=== PATIENT | male | born 1965 | race Caucasian/White ===

== ENCOUNTER 2017-08-01 10:39 | Emergency (ER) | payer OTHER ==
[~2017-08-01] VITALS: Ht 188 cm; Wt 215.5 kg
[~2017-08-01 10:39] MED LIST: ALLO100 PO; ALLO300 PO; AMLO10 PO; AMLO5 PO; AMOCLA875 PO; ASPI81CH PO; ASPI81EC; ASPI81EC PO; ATEN100; CEPH500 PO; CLOT1TC TOP; CRANBERRY; CRUTCH4 USE; CYCL10 PO; Diflucan100 MG PO; EXEN10PI SQ; FARXIGA5 MG PO; FEXO180 PO; FEXO60 PO; FLUC150A PO; FURO20 PO; GABA100 PO; GABA300; GABA300 PO; GEMF600 PO; GLIM2 PO; HYDACE5 PO; HYDCHL25 PO; IBUHYD PO; IBUP800 PO; Keflex500 MG PO; LIRA0.6P; LISHYD2012 PO; LISI20 PO; LOSA50 PO; LOSARTAN-HCTZ1 EAC2 PO; LOSHYD100 PO; MELO7.5; MELO7.5 PO; METF500; METF500 PO; METF500C; METO100ER PO; METO25ER PO; METO50ER PO; Metformin HCl1000 MG PO; Mobic7.5 MG PO; NAPR550 PO; Nitroglycerin0.4 MG SL; OMEP20ER PO; OXYACE5T PO; OXYC1TAB11 PO; POTCHL10ER PO; POTCIT5 PO; Potassium Citra5 MEQ PO; Prilosec20 MG PO; RXCLIN PO; Roxicodone5 MG PO; SENN187 PO; SITA100T2 PO; SULTRIDS PO; TRAM50; TRAM50 PO; [UNRECOGNIZED DRUG - REMARK]
[2017-08-01 11:23] LABS: BASOPHILS ABSOLUTE AUTO 0.04 K/mm3 (0.00-0.23); BASOPHILS PERCENT AUTO 1 % (0-2); EOSINOPHILS ABSOLUTE AUTO 0.08 K/mm3 (0.00-0.68); EOSINOPHILS PERCENT AUTO 1 % (0-6); Hematocrit 41.3 % (37.0-53.0); Hemoglobin 14.1 g/dL (13.5-17.5); IMMATURE GRAN ABSOLUTE AUTO 0.07 K/mm3 (0.00-0.10); IMMATURE GRAN PERCENT AUTO 1 % (0-1); LYMPHOCYTES ABSOLUTE AUTO 1.95 K/mm3 (0.84-5.20); LYMPHOCYTES PERCENT AUTO 29 % (21-46); MONOCYTES ABSOLUTE AUTO 0.61 K/mm3 (0.16-1.47); MONOCYTES PERCENT AUTO 9 % (4-13); Mean Corpuscular HGB 28.4 pg (26.0-34.0); Mean Corpuscular HGB Conc 34.1 g/dL (31.5-36.5); Mean Corpuscular Volume 83 fL (80-100); Mean Platelet Volume 9.2 fL (9.1-12.4); NEUTROPHILS ABSOLUTE AUTO 4.02 K/mm3 (1.96-9.15); NEUTROPHILS PERCENT AUTO 59 % (41-73); Platelet Count 236 K/mm3 (150-400); RDW Coefficient Variation 13.2 % (11.7-14.2); RDW Standard Deviation 39.8 fL (35.1-46.3); Red Blood Cell Count 4.97 M/mm3 (4.30-5.90); White Blood Cell Count 6.77 K/mm3 (4.00-11.30)
[2017-08-01 11:44] LABS: Alanine Aminotransfer (ALT/SGP 73 U/L (12-78); Albumin, Blood 3.5 g/dL (3.4-5.0); Albumin/Globulin Ratio 0.9 (0.8-1.8); Alk Phos 92 U/L (50-136); Anion Gap 10 mmol/L (6-16); Aspartate Aminotrans (AST/SGOT 52 U/L (12-37); Bilirubin, Total 0.3 mg/dL (0.1-1.0); Blood Urea Nitrogen 22 mg/dL (8-24); Bun/Creatinine Ratio 20.8 (12.0-20.0); CO2, Blood 26 mmol/L (21-32); Calcium, Blood 9.4 mg/dL (8.5-10.1); Chloride, Blood 100 mmol/L (98-108); Creatinine, Blood 1.06 mg/dL (0.60-1.20); Glomerular Filtration Rate >60 (60-); Glucose, Blood 402 mg/dL (70-99); Sodium, Blood 136 mmol/L (136-145); Total Protein, Blood 7.5 g/dL (6.4-8.2); Troponin I <0.015 ng/mL (0.000-0.040)
== END 2017-08-01 14:54 | disposition home or self-care (01) ==
LOC: ER 10:39
PROVIDERS: Emergency Medicine
DX: R07.89 Other chest pain (principal); I10 Essential (primary) hypertension; Z91.19 Patient's noncompliance with other medical treatment and regimen; Z88.8 Allergy status to other drugs, medicaments and biological substances; Z79.899 Other long term (current) drug therapy; Z79.82 Long term (current) use of aspirin; Z79.84 Long term (current) use of oral hypoglycemic drugs; E11.9 Type 2 diabetes mellitus without complications; E66.01 Morbid (severe) obesity due to excess calories; Z68.44 Body mass index [BMI] 60.0-69.9, adult
CPT/HCPCS: 36415; 71045; 80053; 83880; 84484; 85025; 93005; 93010; 99284

== ENCOUNTER 2017-10-12 12:41 | Day surgery (SDC) | payer OTHER ==
[~2017-10-12] VITALS: Ht 2.5 cm; Wt 212.7 kg
[~2017-10-12 12:41] MED LIST changes: +BYDUREON B2 MG/0.85 SC; +FLUC100 PO; +HIPREX1 GM PO; +LINZESS145 MCG PO; +METANX CAPSULE1 EACH PO; +METF500C PO; +MUPI1NAS; +Neurontin800 MG PO; +Novolog100 UNIT/1 SC; +Omeprazole20 M1 PO; +TOUJEO MAX300 UNIT/1 SC; +TRIA15CR3 TOP; +UROCIT-K5 MEQ PO; +ZESTORETIC 20-251 EA PO
== END 2017-10-12 23:02 | disposition home or self-care (01) ==
LOC: ORSCMMR 12:41
PROVIDERS: Internal Medicine Gastroenterology
PROC: 0DB58ZX Excision of Esophagus, Via Natural or Artificial Opening Endoscopic, Diagnostic (ICD-10-PCS; principal; 2017-10-12 13:15)
PROC: 0D758ZZ Dilation of Esophagus, Via Natural or Artificial Opening Endoscopic (ICD-10-PCS; principal; 2017-10-12 13:15)
PROC: 0DB68ZX Excision of Stomach, Via Natural or Artificial Opening Endoscopic, Diagnostic (ICD-10-PCS; principal; 2017-10-12 13:15)
DX: R13.10 Dysphagia, unspecified (principal); R11.2 Nausea with vomiting, unspecified; K31.7 Polyp of stomach and duodenum; R10.13 Epigastric pain; K20.9 Esophagitis, unspecified; K25.9 Gastric ulcer, unspecified as acute or chronic, without hemorrhage or perforation; I10 Essential (primary) hypertension; E11.9 Type 2 diabetes mellitus without complications; G47.33 Obstructive sleep apnea (adult) (pediatric); E66.01 Morbid (severe) obesity due to excess calories; Z68.44 Body mass index [BMI] 60.0-69.9, adult; Z79.82 Long term (current) use of aspirin; Z79.899 Other long term (current) drug therapy
CPT/HCPCS: 82947; 88305; 88342; C1726; J3010; J7120

== ENCOUNTER 2018-04-12 11:55 | Day surgery (SDC) | payer OTHER ==
[~2018-04-12] VITALS: Ht 1 cm; Wt 209.6 kg
[~2018-04-12 11:55] MED LIST changes: +LIRA0.6P SC; +METHENAMINE PO
--- NOTE | 2018-04-12 12:46 | NUR ---
History, Chart, Medications and Allergies reviewed before start of procedure. Patient confirms NPO status and agrees with scheduled surgery. Patient States Post-Procedure ride home has been arranged with his sister, Christine.
--- NOTE | 2018-04-12 13:15 | NUR ---
04/12/18 1315 Dave Nichols Bite Block Placed3-LEAD EKG REVIEWED WITH PHYSICIAN PRIOR TO START OF PROCEDURE.Patient to ENDO 1History, Chart, Medications and Allergies reviewed before start of procedure.MONITOR INTACT WITH CONTINUOUS PULSE OXIMETRY AND INTERMITTENT BP.O2 VIA N/C INTACT THROUGHOUT SEDATION/PROCEDURE.See Anesthesia record
--- NOTE | 2018-04-12 14:18 | NUR ---
Discharge instructions reviewed with patient. Patient verbalizes understanding. Copy given to patient to take home. Discharged via wheelchair to private car for ride home WITH SISTER. DENIES QUESTIONS OR CONCERNS RELATED TO DIFFICULTY
== END 2018-04-12 23:14 | disposition home or self-care (01) ==
LOC: ORSCMMR 11:55 → ORD 13:30 → ORSCMMR 13:30
PROVIDERS: Internal Medicine Gastroenterology
PROC: 0DB68ZX Excision of Stomach, Via Natural or Artificial Opening Endoscopic, Diagnostic (ICD-10-PCS; principal; 2018-04-12 13:30)
DX: R10.13 Epigastric pain (principal); K31.7 Polyp of stomach and duodenum; R11.0 Nausea; I10 Essential (primary) hypertension; E11.9 Type 2 diabetes mellitus without complications; G47.33 Obstructive sleep apnea (adult) (pediatric); E66.01 Morbid (severe) obesity due to excess calories; Z68.44 Body mass index [BMI] 60.0-69.9, adult; Z79.899 Other long term (current) drug therapy
CPT/HCPCS: 82947; 88305; 88342; J2250; J7120

== ENCOUNTER 2020-09-17 06:59 | Day surgery (SDC) | payer OTHER ==
[~2020-09-17] VITALS: Ht 188 cm; Wt 214.0 kg
[~2020-09-17 06:59] MED LIST changes: +INSULIN LI100 UNIT/6 SC; +OZEMPIC0.25 MG/0. SC; +POTCIT10 PO; +ROSU5 PO; -TOUJEO MAX300 UNIT/1 SC; +TOUJEO MAX300 UNIT/2 SC; -UROCIT-K5 MEQ PO
[2020-09-17] MEDS ORDERED: VICTOZA 2-0.6 MG/0.1 SC (07:43)
--- NOTE | 2020-09-17 08:37 | NUR ---
PT TO SDS VIA WC. Patient states colon prep results clear. History, Chart, Medications and Allergies reviewed before start of procedure. Lungs clear T/O to Auscultation. Patient States Post-Procedure ride home has been arranged. [facility] BG 150.
--- NOTE | 2020-09-17 10:28 | NUR ---
Discharge instructions reviewed with patient. Patient verbalizes understanding. Copy given to patient to take home. Patient States Post-Procedure ride home has been arranged. Discharged via wheelchair to private car for ride home. PT ALERT AND ORIENTED AND STATES HES REAdy TO DC HOME RIDE CALLED
== END 2020-09-18 00:31 | disposition home or self-care (01) ==
LOC: ORSCMMR 06:59 → ORD 08:45 → ORSCMMR 09-18 00:31
PROVIDERS: Internal Medicine Gastroenterology
PROC: 0DB78ZX Excision of Stomach, Pylorus, Via Natural or Artificial Opening Endoscopic, Diagnostic (ICD-10-PCS; principal; 2020-09-17 08:45)
PROC: 0DBM8ZX Excision of Descending Colon, Via Natural or Artificial Opening Endoscopic, Diagnostic (ICD-10-PCS; principal; 2020-09-17 08:45)
PROC: 0DBK8ZX Excision of Ascending Colon, Via Natural or Artificial Opening Endoscopic, Diagnostic (ICD-10-PCS; principal; 2020-09-17 08:45)
DX: R19.5 Other fecal abnormalities (principal); K31.7 Polyp of stomach and duodenum; D12.2 Benign neoplasm of ascending colon; D12.4 Benign neoplasm of descending colon; K44.9 Diaphragmatic hernia without obstruction or gangrene; K57.30 Diverticulosis of large intestine without perforation or abscess without bleeding; K64.1 Second degree hemorrhoids; I10 Essential (primary) hypertension; E11.9 Type 2 diabetes mellitus without complications; G47.33 Obstructive sleep apnea (adult) (pediatric); E66.01 Morbid (severe) obesity due to excess calories; Z68.44 Body mass index [BMI] 60.0-69.9, adult; Z79.84 Long term (current) use of oral hypoglycemic drugs; Z79.899 Other long term (current) drug therapy
CPT/HCPCS: 82947; 88305; 88341; 88342; J2704; J3010; J7120

== ENCOUNTER 2020-10-05 19:23 | Emergency (ER) | payer OTHER ==
[~2020-10-05] VITALS: Ht 188 cm; Wt 215.5 kg
[~2020-10-05 19:23] MED LIST changes: +VICTOZA 2-0.6 MG/0.1 SC
[2020-10-05] MEDS ORDERED: HYDR1TAB94 PO (22:12)
== END 2020-10-05 22:23 | disposition home or self-care (01) ==
LOC: ER 19:23
DX: S83.92XA Sprain of unspecified site of left knee, initial encounter (principal); S43.401A Unspecified sprain of right shoulder joint, initial encounter; E11.9 Type 2 diabetes mellitus without complications; I10 Essential (primary) hypertension; Z79.82 Long term (current) use of aspirin; Z79.899 Other long term (current) drug therapy; W18.2XXA Fall in (into) shower or empty bathtub, initial encounter
CPT/HCPCS: 73030; 73562-LT; 73610; 73700; 99284-25; A9270

== ENCOUNTER → 2020-12-17 | Outpatient (CLI) | payer OTHER ==
[~2020-12-17] MED LIST changes: +HYDR1TAB94 PO
== END | disposition home or self-care (01) ==
LOC: LAB 17:31 → LAB SHORT 17:31
DX: Z20.822 Contact with and (suspected) exposure to COVID-19 (principal)
CPT/HCPCS: U0003

== ENCOUNTER 2021-05-29 05:09 | Emergency (ER) | payer OTHER ==
[~2021-05-29] VITALS: Ht 188 cm; Wt 215.5 kg
[~2021-05-29 05:09] MED LIST changes: +CEFD300 PO
[2021-05-29 06:40] LABS: BASOPHILS ABSOLUTE AUTO 0.03 K/mm3 (0.00-0.23); BASOPHILS PERCENT AUTO 1 % (0-2); EOSINOPHILS ABSOLUTE AUTO 0.08 K/mm3 (0.00-0.68); EOSINOPHILS PERCENT AUTO 1 % (0-6); Hematocrit 38.6 % (37.0-53.0); Hemoglobin 12.8 g/dL (13.5-17.5); IMMATURE GRAN ABSOLUTE AUTO 0.02 K/mm3 (0.00-0.10); IMMATURE GRAN PERCENT AUTO 0 % (0-1); LYMPHOCYTES ABSOLUTE AUTO 1.63 K/mm3 (0.84-5.20); LYMPHOCYTES PERCENT AUTO 27 % (21-46); MONOCYTES ABSOLUTE AUTO 0.66 K/mm3 (0.16-1.47); MONOCYTES PERCENT AUTO 11 % (4-13); Mean Corpuscular HGB 28.6 pg (26.0-34.0); Mean Corpuscular HGB Conc 33.2 g/dL (31.5-36.5); Mean Corpuscular Volume 86 fL (80-100); Mean Platelet Volume 8.9 fL (9.1-12.4); NEUTROPHILS ABSOLUTE AUTO 3.71 K/mm3 (1.96-9.15); NEUTROPHILS PERCENT AUTO 61 % (41-73); Platelet Count 158 K/mm3 (150-400); RDW Coefficient Variation 13.7 % (11.7-14.2); RDW Standard Deviation 43.3 fL (35.1-46.3); Red Blood Cell Count 4.47 M/mm3 (4.30-5.90); White Blood Cell Count 6.13 K/mm3 (4.00-11.30)
[2021-05-29 06:59] LABS: Alanine Aminotransfer (ALT/SGP 74 U/L (12-78); Albumin, Blood 3.2 g/dL (3.4-5.0); Albumin/Globulin Ratio 0.8 (0.8-1.8); Alk Phos 77 U/L (50-136); Anion Gap 8 mmol/L (6-16); Aspartate Aminotrans (AST/SGOT 22 U/L (12-37); Bilirubin, Total 0.4 mg/dL (0.1-1.0); Blood Urea Nitrogen 28 mg/dL (8-24); Bun/Creatinine Ratio 27.2 (12.0-20.0); CO2, Blood 26 mmol/L (21-32); Calcium, Blood 9.4 mg/dL (8.5-10.1); Chloride, Blood 102 mmol/L (98-108); Creatinine, Blood 1.03 mg/dL (0.60-1.20); Globulin, Blood 3.8 g/dL (2.2-4.0); Glomerular Filtration Rate >60 (60-); Glucose, Blood 336 mg/dL (70-99); Magnesium, Blood 1.7 mg/dL (1.6-2.4); Potassium, Blood 4.7 mmol/L (3.5-5.5); Sodium, Blood 136 mmol/L (136-145)
[2021-05-29] MEDS ORDERED: LASIX20 M2 PO (09:45)
== END 2021-05-29 10:08 | disposition home or self-care (01) ==
LOC: ER 05:09
PROVIDERS: Student in an Organized Health Care Education/Training Program
DX: U07.1 COVID-19 (principal); R60.9 Edema, unspecified; E11.9 Type 2 diabetes mellitus without complications; I10 Essential (primary) hypertension; Z79.82 Long term (current) use of aspirin; Z79.2 Long term (current) use of antibiotics; Z79.4 Long term (current) use of insulin; Z79.84 Long term (current) use of oral hypoglycemic drugs; Z79.899 Other long term (current) drug therapy
CPT/HCPCS: 71045; 71260; 80053; 83735; 83880; 84484; 85025; 85379; 93005; 93010; 93970; 96374-59; 99284-25; A9270; J1885; Q9967

== ENCOUNTER 2021-06-10 16:24 | Inpatient (IN) | payer OTHER ==
[~2021-06-10] VITALS: Ht 188 cm; Wt 210.0 kg
[~2021-06-10 16:24] MED LIST changes: +LASIX20 M2 PO; -Omeprazole20 M1 PO
[2021-06-10 17:03] LABS: BASOPHILS ABSOLUTE AUTO 0.02 K/mm3 (0.00-0.23); BASOPHILS PERCENT AUTO 0 % (0-2); EOSINOPHILS ABSOLUTE AUTO 0.13 K/mm3 (0.00-0.68); EOSINOPHILS PERCENT AUTO 2 % (0-6); Hematocrit 39.8 % (37.0-53.0); Hemoglobin 13.6 g/dL (13.5-17.5); IMMATURE GRAN ABSOLUTE AUTO 0.02 K/mm3 (0.00-0.10); IMMATURE GRAN PERCENT AUTO 0 % (0-1); LYMPHOCYTES ABSOLUTE AUTO 1.98 K/mm3 (0.84-5.20); LYMPHOCYTES PERCENT AUTO 36 % (21-46); MONOCYTES ABSOLUTE AUTO 0.58 K/mm3 (0.16-1.47); MONOCYTES PERCENT AUTO 10 % (4-13); Mean Corpuscular HGB Conc 34.2 g/dL (31.5-36.5); Mean Corpuscular Volume 85 fL (80-100); Mean Platelet Volume 8.7 fL (9.1-12.4); NEUTROPHILS ABSOLUTE AUTO 2.84 K/mm3 (1.96-9.15); NEUTROPHILS PERCENT AUTO 51 % (41-73); Platelet Count 265 K/mm3 (150-400); RDW Coefficient Variation 15.3 % (11.7-14.2); RDW Standard Deviation 46.7 fL (35.1-46.3); Red Blood Cell Count 4.69 M/mm3 (4.30-5.90); White Blood Cell Count 5.57 K/mm3 (4.00-11.30)
[2021-06-10 17:34] LABS: Albumin, Blood 3.6 g/dL (3.4-5.0); Albumin/Globulin Ratio 0.8 (0.8-1.8); Bilirubin, Total 0.6 mg/dL (0.1-1.0); Bun/Creatinine Ratio 18.1 (12.0-20.0); Calcium, Blood 9.8 mg/dL (8.5-10.1); Creatinine, Blood 1.27 mg/dL (0.60-1.20); Globulin, Blood 4.3 g/dL (2.2-4.0); Potassium, Blood 5.1 mmol/L (3.5-5.5); Total Protein, Blood 7.9 g/dL (6.4-8.2)
[2021-06-10 20:40] LABS: Source, Urine Clean Catch
[2021-06-10 20:42] LABS: Appearance, Urine Hazy (Clear); Blood, Urine Neg (Neg); Color, Urine Amber (P-Yellow); Glucose Qualitative, Urine Neg (Neg); Ketones, Urine Neg (Neg); Leukocyte Esterase, Urine Neg (Neg); Nitrite, Urine Pos (Neg); Protein, Urine 1+ (Neg); Specific Gravity, Urine 1.015 (1.003-1.022); Urobilinogen, Urine 1+ (Normal)
[2021-06-10 20:51] LABS: Bilirubin, Urine 2+ (Neg)
[2021-06-10 20:52] LABS: Bacteria Few /hpf; Red Blood Cells, Urine 0-2 /hpf (0-2); Squamous Epithelial Cells Few /hpf (Few); White Blood Cells, Urine 0-2 /hpf (0-5); Yeast/Fungi Urine Few /hpf
[2021-06-11 05:21] LABS: BASOPHILS ABSOLUTE AUTO 0.03 K/mm3 (0.00-0.23); BASOPHILS PERCENT AUTO 1 % (0-2); EOSINOPHILS ABSOLUTE AUTO 0.16 K/mm3 (0.00-0.68); EOSINOPHILS PERCENT AUTO 3 % (0-6); Hematocrit 35.4 % (37.0-53.0); Hemoglobin 11.9 g/dL (13.5-17.5); IMMATURE GRAN ABSOLUTE AUTO 0.03 K/mm3 (0.00-0.10); IMMATURE GRAN PERCENT AUTO 1 % (0-1); LYMPHOCYTES ABSOLUTE AUTO 2.06 K/mm3 (0.84-5.20); LYMPHOCYTES PERCENT AUTO 37 % (21-46); MONOCYTES ABSOLUTE AUTO 0.62 K/mm3 (0.16-1.47); MONOCYTES PERCENT AUTO 11 % (4-13); Mean Corpuscular HGB 28.8 pg (26.0-34.0); Mean Corpuscular HGB Conc 33.6 g/dL (31.5-36.5); Mean Corpuscular Volume 86 fL (80-100); Mean Platelet Volume 8.7 fL (9.1-12.4); NEUTROPHILS ABSOLUTE AUTO 2.68 K/mm3 (1.96-9.15); NEUTROPHILS PERCENT AUTO 48 % (41-73); Platelet Count 237 K/mm3 (150-400); RDW Coefficient Variation 15.2 % (11.7-14.2); RDW Standard Deviation 47.2 fL (35.1-46.3); Red Blood Cell Count 4.13 M/mm3 (4.30-5.90); White Blood Cell Count 5.58 K/mm3 (4.00-11.30)
[2021-06-11 05:41] LABS: Albumin, Blood 3.2 g/dL (3.4-5.0); Albumin/Globulin Ratio 0.9 (0.8-1.8); Bilirubin, Total 0.5 mg/dL (0.1-1.0); Bun/Creatinine Ratio 18.4 (12.0-20.0); Calcium, Blood 9.4 mg/dL (8.5-10.1); Creatinine, Blood 1.58 mg/dL (0.60-1.20); Globulin, Blood 3.4 g/dL (2.2-4.0); Potassium, Blood 4.3 mmol/L (3.5-5.5); Total Protein, Blood 6.6 g/dL (6.4-8.2)
--- NOTE | 2021-06-11 06:18 | NUR ---
PM SHIFT SUMMARY PATIENT COMES TO US WITH FAILED OUTPATIENT BLE CELLULITIS TREATMENT. HE COMPLETED 5 DAYS OF KEFLEX, THEN WAS STARTED ON IT AGAIN ALONG WITH BACTRIM ON 06/07/21. HE ALSO RECEIVED 3 SHOTS OF CEFTRIAXONE. HIS PCP SENT HIM IN FOR WORSENING OF THE CELLULITIS. HE HAD COVID 6-8 WEEKS AGO AND NOW REQUIRES 4L O2 VIA NC EVERY DAY AT HOME, WHICH HE IS ON HERE NOW. UA SHOWS A UTI WELL. HE IS A&Ox4, WALKS WITH A CANE AND IS A STANDBY ASSIST. HE IS GETTING IV VANCO AND ZOSYN WITH US.
--- NOTE | 2021-06-11 19:27 | NUR ---
PATIENT ON NASAL CANNULA UPON ARRIVAL STABLE ALERT AND ORIENTED X 4. CELLULLITIS IN LEG APPEARS TO BE SPREADING BUT PATINT IS ON ABX. MD SAW PATIENT EARLIER TODAY AND ACKNOWLEDGED THE SPREAD. PATIENT HAS BILATERAL LLE EDEMA WHERE THE INFECTION IS. PRN OXYCODONE ORDERED AND GIVEN FOR PAIN. PATIENT STABLE UPON SHIFT REPORT.
[2021-06-12 05:34] LABS: Bun/Creatinine Ratio 16.9 (12.0-20.0); Calcium, Blood 9.3 mg/dL (8.5-10.1); Creatinine, Blood 1.6 mg/dL (0.60-1.20); Potassium, Blood 4.2 mmol/L (3.5-5.5)
--- NOTE | 2021-06-12 06:31 | NUR ---
SHIFT SUMMARY: PATIENT REPORTS PAIN IN LOW BACK AND BILAT LE, OXYCODONE 10 MG IS EFFECTIVE FOR PAIN CONTROL. DIFFICULT TO OBTAIN BP DUE TO LARGE CUFF DOES NOT FIT CIRCOMFRENCE OF UPPER ARM AND WRIST CUFF GIVES VARIED READING. PATIENT IS ASYMPTOMATIC WITH THROUGHOUT SHIFT. PATIENT VEBALIZES LOOSING SON TO COVID RECENTLY AND IS EMOTIONAL AT TIMES. EMOTIONAL SUPPORT IS GIVEN.
--- NOTE | 2021-06-12 17:27 | NUR ---
PATIENT WHO IS HERE DUE TO CELLULITIS, IS CURRENTLY VISITING WITH FAMILY. TODAY, HE HAS NEEDED SLIDING SCALE INSULILN WITH EACH MEAL. HE HAS PAIN THAT INCREASES WITH MOVEMENT, BUT SUBSIDES WITH STILLNESS AND ROXICODONE. HE HAS TAKEN PRN PITA X 2 THIS SHIFT. THE CELLULITIS APPEARS TO BE CREEPING ABOVE THE OUTLINED PARAMETER MARKED ON THE PATIENTS LEG. THE LOWER EXTREMITIES ARE WARM TO TOUCH, HARD AND HAVE THE APPEARANCE OF ABOUT TO WEEP. LISTENING TO HIS LUNGS, THEY SOUND CLEAR. THE BREATH IS DIMINISHED BUT NO CRACKLES WERE HEARD. BOWEL SOUNDS ARE POSITIVE BUT PATIENT REPORTS NO BM X [address] ROSE STATED WE COULD ORDER MIRALAX. PATIENT TALKED ABOUT HIS SON TODAY, WHO PASSED FROM COVID AND WAS TEARY DURING CONVERSATION. AT THIS TIME, THE PATIENTS MOOD APPEARS RELAXED AND HAPPY WITH HIS YOUNGEST SON VISITNG.
--- NOTE | 2021-06-12 18:15 | NUR ---
PATIENT REPORTS THAT HIS URINE STREAM IS WEAK, HE HAS BACK PAIN AND DARK COLORED URINE. HE STATES THAT HE HAS BEEN DRINKING ALOT OF FLUID THROUGHOUT THE DAY, BUT HAS ONLY URINATED TWICE (AND DOESN'T FEEL LIKE HE NEEDS TO VOID). HE WAS ASKING IF ANOTHER URINE SAMPLE COULD BE TAKEN. DR. ROSE WAS CALLED BUT DOESN'T BELIEVE THAT A UTI IS PLAUSIBLE WITH THE PATIENT ON SUCH STONG ANTIBIOTICS AT THIS TIME. DR. ROSE SUGGESTED FLOMAX 0.4MG DAILY. THE PATIENT DOES NOT WANT TO START ANOTHER NEW MEDICATION AT THIS TIME, SO THE ORDER WAS NOT PLACED INTO THE SYSTEM. I ASKED THE PAITIENT TO ADDRESS THIS ISSUE DIRECTLY WITH THE PROVIDER TOMORROW.
--- NOTE | 2021-06-13 05:23 | NUR ---
SHIFT SUMMARY: PATIENT IS COMPLIANT WITH CARE AND MEDICATION ADMINISTRATION. ONGOING PAIN TREATED PER EMAR. BLE EDEMA PRESENT. REAMINS ON 2L 02 AND CPAP HS SAT > 91%. LCTA, DIMINISHEDD E/U RESP. ROUNDED ABDOMEN WITH UMBILICAL HERNIA. HAS NOT HAD BM, DENIES FEELING CONSTIPATED. EDUCATED PATIENT ON RISL OF CONSTIPATION WITH OPIATE USE. PATIENT RECEIVED MIRALAX ON DAY SHIFT. REDNESS TO BLE EXTREMITY CROSSED OVER OUTLINE MARKED ON ADMISSION, SOME BLISTERING PRESENT BOTTOM OF CALF. NO SIGNIFICANT EVENTS ON NOC.
[2021-06-13 06:05] LABS: Bun/Creatinine Ratio 19.4 (12.0-20.0); Calcium, Blood 9.1 mg/dL (8.5-10.1); Creatinine, Blood 1.7 mg/dL (0.60-1.20)
--- NOTE | 2021-06-13 11:07 | NUR ---
PATIENT HAS SLIGHT PROGRESSION OF CELLULITIS IN BLE. PATIENT WAS MARKED WITH MARKER TO HELP SHOW WORSENING OR IMPROVEMENT IN LEGS. PATIENT WAS A AND O 4X AND HAD NO FURTHER COMPLAINTS.
--- NOTE | 2021-06-14 03:27 | NUR ---
SHIFT SUMMARY PATIENT ALERT AND ORIENTED X 4 ABLE TO VOICE NEEDS C/O PAIN TO HIS LLB NO SWELLING NOTED OXYCODEN 10MG ADM WITH RELIEF PT CONT ABT/IV FOR CELLULITIES MADHURI LOWER EXT NON WEEPING REDNESS STILL EVIDENT WARM TO TOUCH,CPAP ON AT NIGHT NO SOB NOTED/VOICED NO ACUTE CHANGE AT THIS MOMENT
[2021-06-14 05:55] LABS: Bun/Creatinine Ratio 21.7 (12.0-20.0); Calcium, Blood 9.1 mg/dL (8.5-10.1); Creatinine, Blood 1.52 mg/dL (0.60-1.20); Potassium, Blood 4.2 mmol/L (3.5-5.5)
--- NOTE | 2021-06-14 17:10 | NUR ---
SHIFT SUMMARY PT A&O X4 AND IN PLEASENT MOOD T/O SHIFT. PT @ BEDSIDE DURING VISITING HOURS. PT MEDICATED FOR PAIN PER EMAR PRN. PT INDEPENDENT IN ROOM, BARIATRIC BED/AIR MATTRESS PROVIDED PER PT REQUEST, ORDERS THIS SHIFT. 4L NC SATS <95. BLE CELLULITIS INSIDE OUTLINED BORDER. VSS. CALL LIGHT W/ IN REACH. PLAN TO CONT. IV ABX.
--- NOTE | 2021-06-15 04:56 | NUR ---
SHIFT SUMMARY PATIENT ALERT AND ORIENTED X 4 C/O PAIN TO HIS LOWER LEFT BACK PRN OXYCODON ADM PER EMAR WITH RELIEF.CONT ABT/CELLULITIES TO BLE REDNESS AND WARMNESS HAS REDUCED PT STATING HE IS FILLING MUCH BETTER.NO SOB NOTED
[2021-06-15 05:24] LABS: BASOPHILS ABSOLUTE AUTO 0.03 K/mm3 (0.00-0.23); BASOPHILS PERCENT AUTO 1 % (0-2); EOSINOPHILS ABSOLUTE AUTO 0.07 K/mm3 (0.00-0.68); EOSINOPHILS PERCENT AUTO 2 % (0-6); Hematocrit 29.7 % (37.0-53.0); Hemoglobin 10.3 g/dL (13.5-17.5); IMMATURE GRAN ABSOLUTE AUTO 0.02 K/mm3 (0.00-0.10); IMMATURE GRAN PERCENT AUTO 1 % (0-1); LYMPHOCYTES ABSOLUTE AUTO 1.49 K/mm3 (0.84-5.20); LYMPHOCYTES PERCENT AUTO 39 % (21-46); MONOCYTES ABSOLUTE AUTO 0.64 K/mm3 (0.16-1.47); MONOCYTES PERCENT AUTO 17 % (4-13); Mean Corpuscular HGB 29.3 pg (26.0-34.0); Mean Corpuscular HGB Conc 34.7 g/dL (31.5-36.5); Mean Corpuscular Volume 84 fL (80-100); Mean Platelet Volume 8.5 fL (9.1-12.4); NEUTROPHILS ABSOLUTE AUTO 1.53 K/mm3 (1.96-9.15); NEUTROPHILS PERCENT AUTO 41 % (41-73); Platelet Count 227 K/mm3 (150-400); RDW Coefficient Variation 14.7 % (11.7-14.2); RDW Standard Deviation 45.3 fL (35.1-46.3); Red Blood Cell Count 3.52 M/mm3 (4.30-5.90); White Blood Cell Count 3.78 K/mm3 (4.00-11.30)
[2021-06-15 05:39] LABS: Bun/Creatinine Ratio 22.8 (12.0-20.0); Calcium, Blood 9.1 mg/dL (8.5-10.1); Creatinine, Blood 1.36 mg/dL (0.60-1.20); Potassium, Blood 4.4 mmol/L (3.5-5.5)
--- NOTE | 2021-06-15 16:58 | NUR ---
SHIFT SUMMARY PT IS A&O, UP INDEPENDENTLY TO EOB AND TO BTHRM. PT IS SUPER MORBIDLY OBESE WITH NEUROPATHY IN BOTH LEGS. SWELLING AND REDNESS TO BLE'S MUCH IMPROVED. PT REPORTED THAT HE WAS RESTARTED ON LASIX, WHICH HAS HELPED WELL WITH IV ABX. DR MORENO HERE TO SEE PT, DISCUSS PLAN OF CARE. PT IMPROVED AND TO D/C HOME TOMORROW. MEDICATED FOR C/O BACK PAIN PER EMAR. O2 DECREASED TO 1L VIA NC WITH BIOX AT 99%. PT UP TO SHOWER THIS AM. TO THIS AM AND AGAIN THIS AFTERNOON. PT ENCOURAGED TO ELEVATE LE'S AND TO AMBULATE IN RM TO INCREASE CIRRCULATION. PT REPORTED THAT HE MOSTLY LIKES TO SIT IN CHAIR DURING THE DAY AND WILL ELEVATE LEGS AT NIGHT. DENIED FURTHER NEEDS. CALL LT IN REACH.
[2021-06-16 06:05] LABS: Anion Gap 7 mmol/L (6-16); Blood Urea Nitrogen 26 mg/dL (8-24); Bun/Creatinine Ratio 23.6 (12.0-20.0); CO2, Blood 27 mmol/L (21-32); Calcium, Blood 8.7 mg/dL (8.5-10.1); Chloride, Blood 94 mmol/L (98-108); Glomerular Filtration Rate >60 (60-); Glucose, Blood 225 mg/dL (70-99); Potassium, Blood 3.9 mmol/L (3.5-5.5); Sodium, Blood 128 mmol/L (136-145)
--- NOTE | 2021-06-16 06:09 | NUR ---
SHIFT SUMMARY PATIENT ALERT AND ORIENTED. MEDICATED PER EMAR FOR PAIN. HAD NO COMPLAINTS OF SHORTNESS OF BREATH. NO ACUTE ISSUES NOTED OVERNIGHT. CALL LIGHT WITHIN REACH. REPORT GIVEN TO ONCOMING RN.
[2021-06-16] MEDS ORDERED: COLACE100 MG PO (11:13)
[2021-06-16] MEDS ORDERED: TRAM50 PO (11:13)
[2021-06-16] MEDS ORDERED: FURO80 PO (11:14)
[2021-06-16] MEDS ORDERED: TAMS.4ER PO (11:15)
[2021-06-16] MEDS ORDERED: MIRALAX17 GM PO (11:15)
[2021-06-16] MEDS ORDERED: VISBIOME 112.51 EACH PO (11:16)
[2021-06-16] MEDS ORDERED: CEPH500 PO (11:17)
--- NOTE | 2021-06-16 13:10 | NUR ---
DISCHARGE SUMMARY PT DISCHARGED HOME WITH . PT CONNECTED OT 02 TANK AND WHEELED OUT BY WHEELCHAIR, IV DC'D. ALL DISCHARGE INFORMATION GONE OVER WITH PT
== END 2021-06-16 12:27 | disposition home or self-care (01) | DRG 603 ==
LOC: ER 16:24 → MEDS 22:57
PROVIDERS: Emergency Medicine; Internal Medicine; Physician Assistant; ADMIT Internal Medicine
DX: L03.115 Cellulitis of right lower limb (principal); E66.2 Morbid (severe) obesity with alveolar hypoventilation; Z68.44 Body mass index [BMI] 60.0-69.9, adult; N39.0 Urinary tract infection, site not specified; N17.9 Acute kidney failure, unspecified; E87.1 Hypo-osmolality and hyponatremia; J96.11 Chronic respiratory failure with hypoxia; I87.8 Other specified disorders of veins; L03.116 Cellulitis of left lower limb; I12.9 Hypertensive chronic kidney disease with stage 1 through stage 4 chronic kidney disease, or unspecified chronic kidney disease; E11.22 Type 2 diabetes mellitus with diabetic chronic kidney disease; N18.30 Chronic kidney disease, stage 3 unspecified; Z79.4 Long term (current) use of insulin; K59.09 Other constipation; M10.9 Gout, unspecified; N20.0 Calculus of kidney; B37.2 Candidiasis of skin and nail; Z86.16 Personal history of COVID-19; R60.0 Localized edema; I27.81 Cor pulmonale (chronic); Z79.82 Long term (current) use of aspirin; Z79.899 Other long term (current) drug therapy; N14.1 Nephropathy induced by other drugs, medicaments and biological substances; T46.1X5A Adverse effect of calcium-channel blockers, initial encounter; T36.95XA Adverse effect of unspecified systemic antibiotic, initial encounter
CPT/HCPCS: 36415; 71045; 76770; 80048; 80053; 81001; 82947; 83880; 84484; 85025; 87086; 93005; 93010; 94660; 94761; 94762; 96365; 96366; 96368; 96375; 99285-25; A9270; C8929; J0690; J1644; J1815; J1885; J2543; J3370; J7050; Q9957

== ENCOUNTER 2021-11-03 10:30 | Emergency (ER) | payer OTHER ==
[~2021-11-03] VITALS: Ht 188 cm; Wt 210.9 kg
[~2021-11-03 10:30] MED LIST changes: +COLACE100 MG PO; +FURO80 PO; +MIRALAX17 GM PO; +TAMS.4ER PO; +VISBIOME 112.51 EACH PO
[2021-11-03 11:18] LABS: BASOPHILS ABSOLUTE AUTO 0.03 K/mm3 (0.00-0.23); BASOPHILS PERCENT AUTO 1 % (0-2); EOSINOPHILS PERCENT AUTO 2 % (0-6); Hematocrit 38.3 % (37.0-53.0); Hemoglobin 13.2 g/dL (13.5-17.5); IMMATURE GRAN ABSOLUTE AUTO 0.02 K/mm3 (0.00-0.10); IMMATURE GRAN PERCENT AUTO 0 % (0-1); LYMPHOCYTES ABSOLUTE AUTO 1.75 K/mm3 (0.84-5.20); LYMPHOCYTES PERCENT AUTO 29 % (21-46); MONOCYTES ABSOLUTE AUTO 0.54 K/mm3 (0.16-1.47); MONOCYTES PERCENT AUTO 9 % (4-13); Mean Corpuscular HGB 29.5 pg (26.0-34.0); Mean Corpuscular HGB Conc 34.5 g/dL (31.5-36.5); Mean Corpuscular Volume 86 fL (80-100); Mean Platelet Volume 8.7 fL (9.1-12.4); NEUTROPHILS ABSOLUTE AUTO 3.66 K/mm3 (1.96-9.15); NEUTROPHILS PERCENT AUTO 60 % (41-73); Platelet Count 214 K/mm3 (150-400); RDW Coefficient Variation 14.1 % (11.7-14.2); RDW Standard Deviation 43.8 fL (35.1-46.3); Red Blood Cell Count 4.48 M/mm3 (4.30-5.90)
[2021-11-03 11:35] LABS: Albumin, Blood 3.7 g/dL (3.4-5.0); Bilirubin, Total 0.4 mg/dL (0.1-1.0); Bun/Creatinine Ratio 14.7 (12.0-20.0); Calcium, Blood 9.6 mg/dL (8.5-10.1); Creatinine, Blood 1.02 mg/dL (0.60-1.20); Globulin, Blood 3.7 g/dL (2.2-4.0); Potassium, Blood 4.4 mmol/L (3.5-5.5); Total Protein, Blood 7.4 g/dL (6.4-8.2)
[2021-11-03 13:19] LABS: Source, Urine Clean Catch
[2021-11-03 13:26] LABS: Appearance, Urine Clear (Clear); Bilirubin, Urine Neg (Neg); Blood, Urine Neg (Neg); Color, Urine Yellow (P-Yellow); Glucose Qualitative, Urine Neg (Neg); Ketones, Urine Neg (Neg); Leukocyte Esterase, Urine Neg (Neg); Nitrite, Urine Neg (Neg); Protein, Urine 1+ (Neg); Specific Gravity, Urine 1.015 (1.003-1.022); Urobilinogen, Urine NORM (Normal)
== END 2021-11-03 14:50 | disposition home or self-care (01) ==
LOC: ER 10:30
PROVIDERS: Physician Assistant
DX: R10.9 Unspecified abdominal pain (principal); K59.00 Constipation, unspecified; E11.9 Type 2 diabetes mellitus without complications; I10 Essential (primary) hypertension; G47.33 Obstructive sleep apnea (adult) (pediatric); Z79.899 Other long term (current) drug therapy; Z79.4 Long term (current) use of insulin; Z79.82 Long term (current) use of aspirin
CPT/HCPCS: 74177; 80053; 83690; 85025; 99284-25; Q9967

== ENCOUNTER 2023-05-14 16:51 | Emergency (ER) | payer OTHER ==
[~2023-05-14] VITALS: Ht 188 cm; Wt 186.9 kg
[~2023-05-14 16:51] MED LIST changes: +NORVASC5 MG PO; +OZEMPIC2 MG/0.75 SC; +SPIR25 PO; +TORSE20; +TORSE20 PO
[2023-05-14 17:37] LABS: BASOPHILS ABSOLUTE AUTO 0.03 K/mm3 (0.00-0.23); BASOPHILS PERCENT AUTO 0 % (0-2); EOSINOPHILS ABSOLUTE AUTO 0.07 K/mm3 (0.00-0.68); EOSINOPHILS PERCENT AUTO 1 % (0-6); Hematocrit 37.7 % (37.0-53.0); IMMATURE GRAN ABSOLUTE AUTO 0.05 K/mm3 (0.00-0.10); IMMATURE GRAN PERCENT AUTO 0 % (0-1); LYMPHOCYTES ABSOLUTE AUTO 1.57 K/mm3 (0.84-5.20); LYMPHOCYTES PERCENT AUTO 13 % (21-46); MONOCYTES ABSOLUTE AUTO 1.07 K/mm3 (0.16-1.47); MONOCYTES PERCENT AUTO 9 % (4-13); Mean Corpuscular HGB 30.5 pg (26.0-34.0); Mean Corpuscular HGB Conc 34.5 g/dL (31.5-36.5); Mean Corpuscular Volume 89 fL (80-100); Mean Platelet Volume 8.9 fL (9.1-12.4); NEUTROPHILS ABSOLUTE AUTO 8.99 K/mm3 (1.96-9.15); NEUTROPHILS PERCENT AUTO 76 % (41-73); Platelet Count 214 K/mm3 (150-400); RDW Coefficient Variation 13.5 % (11.7-14.2); RDW Standard Deviation 43.5 fL (35.1-46.3); Red Blood Cell Count 4.26 M/mm3 (4.30-5.90); White Blood Cell Count 11.78 K/mm3 (4.00-11.30)
[2023-05-14 17:48] LABS: Influenza A, PCR NEGATIVE (NEGATIVE); Influenza B, PCR NEGATIVE (NEGATIVE); Resp Syncytial Virus, PCR NEGATIVE (NEGATIVE); SARS-Cov-2 (COVID-19) PCR, MMC NEGATIVE (NEGATIVE)
[2023-05-14 18:17] LABS: Albumin, Blood 3.4 g/dL (3.4-5.0); Albumin/Globulin Ratio 0.7 (0.8-1.8); Bilirubin, Total 0.8 mg/dL (0.1-1.0); Bun/Creatinine Ratio 18.3 (12.0-20.0); Calcium, Blood 9.8 mg/dL (8.5-10.1); Creatinine, Blood 1.26 mg/dL (0.60-1.20); Globulin, Blood 4.6 g/dL (2.2-4.0); Potassium, Blood 4.4 mmol/L (3.5-5.5)
[2023-05-14] MEDS ORDERED: HIPREX1 G1 PO (19:28)
[2023-05-14] MEDS ORDERED: LISI5 PO (19:29)
[2023-05-14] MEDS ORDERED: EPLERENONE25 M2 PO (19:30)
[2023-05-14] MEDS ORDERED: Ventolin5 MG/1 ML INH (19:30)
[2023-05-14] MEDS ORDERED: Ventolin/Prove6.7 GM INH (19:30)
[2023-05-14 20:00] VITALS: BP 138/70
== END 2023-05-14 20:24 | disposition home or self-care (01) ==
LOC: ER 16:51
PROVIDERS: Physician Assistant
DX: B34.9 Viral infection, unspecified (principal); I10 Essential (primary) hypertension; E11.9 Type 2 diabetes mellitus without complications; G47.33 Obstructive sleep apnea (adult) (pediatric); E66.9 Obesity, unspecified; Z68.43 Body mass index [BMI] 50.0-59.9, adult; Z11.52 Encounter for screening for COVID-19; Z79.899 Other long term (current) drug therapy; Z79.85 Long-term (current) use of injectable non-insulin antidiabetic drugs; Z79.51 Long term (current) use of inhaled steroids; Z79.84 Long term (current) use of oral hypoglycemic drugs
CPT/HCPCS: 0241U; 71046; 80053; 85025; 99284-25

== ENCOUNTER → 2024-09-12 | Outpatient (CLI) | payer OTHER ==
[~2024-09-12] MED LIST changes: +EPLERENONE25 M2 PO; +HIPREX1 G1 PO; +LISI5 PO; +Ventolin/Prove6.7 GM INH; +Ventolin5 MG/1 ML INH
== END | disposition home or self-care (01) ==
LOC: LAB 18:03 → LAB SHORT 18:03
DX: N39.0 Urinary tract infection, site not specified (principal)
CPT/HCPCS: 87077; 87086; 87186

== ENCOUNTER → 2024-12-29 | Outpatient (CLI) | payer OTHER ==
[2024-12-29 13:21] LABS: BASOPHILS ABSOLUTE AUTO 0.01 K/mm3 (0.00-0.23); BASOPHILS PERCENT AUTO 0 % (0-2); EOSINOPHILS ABSOLUTE AUTO 0.10 K/mm3 (0.00-0.68); EOSINOPHILS PERCENT AUTO 2 % (0-6); Hematocrit 36.5 % (37.0-53.0); Hemoglobin 12.7 g/dL (13.5-17.5); IMMATURE GRAN ABSOLUTE AUTO 0.03 K/mm3 (0.00-0.10); IMMATURE GRAN PERCENT AUTO 1 % (0-1); LYMPHOCYTES ABSOLUTE AUTO 1.46 K/mm3 (0.84-5.20); LYMPHOCYTES PERCENT AUTO 23 % (21-46); MONOCYTES ABSOLUTE AUTO 0.88 K/mm3 (0.16-1.47); MONOCYTES PERCENT AUTO 14 % (4-13); Mean Corpuscular HGB Conc 34.8 g/dL (31.5-36.5); Mean Corpuscular Volume 89 fL (80-100); NEUTROPHILS ABSOLUTE AUTO 3.79 K/mm3 (1.96-9.15); NEUTROPHILS PERCENT AUTO 60 % (41-73); NRBC ABSOLUTE 0.00 K/mm3 (0.00-0.02); NRBC Auto 0.0 /100 WBC (0.0-0.2); Platelet Count 154 K/mm3 (150-400); RDW Coefficient Variation 13.2 % (11.7-14.2); RDW Standard Deviation 43.1 fL (35.1-46.3)
[2024-12-29 13:35] LABS: Alanine Aminotransfer (ALT/SGP 40.0 U/L (12-78); Albumin, Blood 3.5 g/dL (3.4-5.0); Albumin/Globulin Ratio 0.9 (0.8-1.8); Anion Gap 15.0 mmol/L (3-11); Aspartate Aminotrans (AST/SGOT 31.0 U/L (12-37); Bilirubin, Total 0.8 mg/dL (0.1-1.0); Blood Urea Nitrogen 25.0 mg/dL (8-24); CO2, Blood 25.0 mmol/L (21-32); Calcium, Blood 9.4 mg/dL (8.5-10.1); Chloride, Blood 100.0 mmol/L (98-108); Creatinine, Blood 1.44 mg/dL (0.60-1.20); Globulin, Blood 3.9 g/dL (2.2-4.0); Glucose, Blood 262.0 mg/dL (70-99); Potassium, Blood 4.3 mmol/L (3.5-5.5); Sodium, Blood 136.0 mmol/L (136-145); Total Protein, Blood 7.4 g/dL (6.4-8.2)
== END ==
LOC: LAB 13:18 → LAB SHORT 13:18
PROVIDERS: Physician Assistant
DX: R09.02 Hypoxemia (principal)
CPT/HCPCS: 80053; 83880; 84484; 85025